=== PATIENT | female | born 1970 | race Asian ===

== ENCOUNTER 2022-01-21 09:50 | Emergency (ER) | payer OTHER ==
[~2022-01-21] VITALS: Ht 165.1 cm; Wt 68.0 kg
[2022-01-21] MEDS ORDERED: HYDROCODONE/ACETAMINOPHEN 5/325MG TABLET PO ONE (10:45)
[2022-01-21 11:02] VITALS: BP 122/72
[2022-01-21 11:12] LABS: BASOPHILS % 0.3 % (0.0-2.0); EOSINOPHILS % 0.8 % (0.0-5.0); HEMOGLOBIN. 13.4 g/dL (12.0-16.0); LYMPHOCYTES % 14.4 % (20.0-50.0); MEAN CORPUSCULAR HEMOGLOBIN 27.7 pg (28.0-32.0); MEAN CORPUSCULAR VOLUME 80.8 fL (81.0-99.0); MEAN PLATELET VOLUME 8.2 fl (7.4-10.4); MONOCYTES % 7.1 % (2.0-8.0); NEUTROPHILS % 77.4 % (40.0-76.0); PLATELET 314 x1000/uL (130-400); RED BLOOD CELL COUNT 4.83 mill/uL (4.2-5.4); RED CELL DISTRIBUTION WIDTH 13.3 % (11.6-14.6)
[2022-01-21 11:14] LABS: CHLORIDE 108 mEq/L (98-107); CLARITY URINE CLEAR (CLEAR); COLOR URINE YELLOW (YELLOW); KETONES URINE 3+ (NEGATIVE); LEUKOCYTE ESTERASE URINE 2+ (NEGATIVE); NITRITE URINE NEGATIVE (NEGATIVE); OCCULT BLOOD URINE TRACE (NEGATIVE); PROTEIN URINE TRACE (NEGATIVE); UROBILINOGEN URINE 0.2 E.U./dL (0.2-1.0)
[2022-01-21] MEDS ORDERED: IOHEXOL-350 100 ML BOTTLE ONE (12:42)
[2022-01-21] MEDS ORDERED: CEPH250C2 MT (13:26)
[2022-01-21] MEDS ORDERED: HYDR-4001 MT (13:26)
[2022-01-21] MEDS ORDERED: METH-773 MT (13:26)
[2022-01-21] MEDS ORDERED: LIDO1ADH23 TP (13:26)
== END 2022-01-21 13:39 | disposition home or self-care (01) ==
LOC: ER 09:50
DX: S80.212A Abrasion, left knee, initial encounter (principal); M54.2 Cervicalgia; R10.30 Lower abdominal pain, unspecified; V49.49XA Driver injured in collision with other motor vehicles in traffic accident, initial encounter; Y93.89 Activity, other specified; Y92.89 Other specified places as the place of occurrence of the external cause; Y99.8 Other external cause status
CPT/HCPCS: 36415; 71045; 71260; 73562; 74177; 80053; 81003; 81025; 83690; 84484; 85025; 87077; 87086; 99285; Q9967